=== PATIENT | male | born 1960 | race Caucasian/White ===

== ENCOUNTER 2016-09-12 22:35 | Inpatient (IN) | payer MEDICAID, OTHER ==
[~2016-09-12] VITALS: Ht 170.2 cm; Wt 69.8 kg
[~2016-09-12 22:35] MED LIST: ASPI-1093 PO; AUD NEB; BENZ2TAB10 PO; CARV6 PO; DSS100 PO; FLUP5 PO; FURO40 PO; IPRNEB NEB; LURA40 PO; NICO21T TD; PANT40TA25 PO; SLOWK8 PO; VALS40TA4 PO
[2016-09-13] MEDS ORDERED: LORazepam 2 MG/ML VIAL IM ONE ×2 (00:30)
[2016-09-13] MEDS ORDERED: HALOPERIDOL LACTATE 5 MG/ML VIAL IM ONE ×2 (00:30)
[2016-09-13] MEDS ORDERED: DiphenhydrAMINE HCL 50 MG/ML VIAL IM ONE ×2 (00:30)
[2016-09-13 00:34] LABS: EOSINOPHILS % (AUTO) 3.3 % (1.0-6.0); HEMATOCRIT 37.1 % (41-53); HEMOGLOBIN 12.6 g/dL (13.5-17.5); LYMPHOCYTES # (AUTO) 2.2 K/uL (1.0-4.8); LYMPHOCYTES % (AUTO) 25.8 % (22.0-44.0); MEAN CORPUSCULAR HEMOGLOBIN 30.9 pg (26.0-34.0); MEAN CORPUSCULAR HGB CONC 33.9 G/dL (31.0-37.0); MEAN CORPUSCULAR VOLUME 91 fL (80-100); MONOCYTES # (AUTO) 1.1 K/uL (0.1-1.0); MONOCYTES % (AUTO) 12.6 % (2.0-9.0); NEUTROPHILS # (AUTO) 4.9 K/uL (1.8-7.7); NEUTROPHILS % (AUTO) 57.3 % (40.0-70.0); PLATELET COUNT (AUTO) 400 K/uL (150-450); RED BLOOD CELL COUNT(AUTO) 4.07 MIL/uL (4.50-5.90); RED CELL DISTRIBUTION WIDTH 13.5 % (11.5-14.5); WHITE BLOOD COUNT (AUTO) 8.6 K/uL (4.5-11.0)
[2016-09-13 00:39] LABS: ANION GAP 3 mmol/L (8-16); CALCIUM, TOTAL 8.7 mg/dL (8.8-10.5); CARBON DIOXIDE 31 mmol/L (22-29); CHLORIDE 92 mmol/L (98-107); GLOMERULAR FILTR. RATE CALC > 60 mL/min (>60); POTASSIUM 4.8 mmol/L (3.5-5.1); SODIUM SERUM 126 mmol/L (136-145); UREA NITROGEN, BLOOD 14 mg/dL (7-18)
[2016-09-13 00:45] LABS: ALANINE AMINOTRANSFERASE 30 U/L (12-78); ALBUMIN 3.4 g/dL (3.4-5.0); ASPARTATE AMINOTRANSFERASE 29 U/L (15-37); BILIRUBIN,TOTAL 0.6 mg/dL (0.1-1.0); TOTAL PROTEIN, SERUM 7.7 g/dL (6.4-8.2)
[2016-09-13] MEDS ORDERED: ChlordiazePOXIDE HCL 25 MG CAPSULE PO ONE (02:30)
[2016-09-13 03:40] LABS: CHOL/HDL RATIO 2.5 (4.2-7.3)
[2016-09-13] MEDS ORDERED: SODIUM CHLORIDE 1 GM TABLET PO ONE (04:15)
[2016-09-13] MEDS: LORazepam 2 MG TABLET PO PRN (09:38)
[2016-09-13] MEDS: HALOPERIDOL 5 MG TABLET PO PRN (09:38)
[2016-09-13 10:16] VITALS: BP 179/116
[2016-09-13 15:50] VITALS: BP 148/88
[2016-09-13] MEDS: SODIUM CHLORIDE 1 GM TABLET PO SCH (20:54)
[2016-09-13] MEDS: RisperiDONE 2 MG TABLET PO SCH (20:54)
[2016-09-14 08:19] VITALS: BP 114/72
[2016-09-14] MEDS: SODIUM CHLORIDE 1 GM TABLET PO SCH ×2 (08:52→17:16)
[2016-09-14] MEDS: RisperiDONE 2 MG TABLET PO SCH ×2 (08:52→20:31)
[2016-09-14] MEDS ORDERED: CloNIDine HCL 0.1 MG TABLET PO PRN (09:45)
[2016-09-14] MEDS: LORazepam 2 MG TABLET PO PRN (11:15)
[2016-09-14] MEDS: HALOPERIDOL 5 MG TABLET PO PRN (11:15)
[2016-09-15] MEDS: ZOLPIDEM TARTRATE 10 MG TABLET PO PRN (00:53)
[2016-09-15] MEDS: HALOPERIDOL 5 MG TABLET PO PRN ×2 (00:54→16:40)
[2016-09-15] MEDS: ASPIRIN 81 MG CHEWABLE TABLET PO SCH (06:57)
[2016-09-15 08:04] VITALS: BP 155/99
[2016-09-15] MEDS: FUROSEMIDE 20 MG TABLET PO SCH (08:15)
[2016-09-15] MEDS: SODIUM CHLORIDE 1 GM TABLET PO SCH ×2 (08:15→16:41)
[2016-09-15] MEDS: RisperiDONE 2 MG TABLET PO SCH ×2 (08:15→20:18)
[2016-09-15] MEDS: AmLODIPine BESYLATE 10 MG TABLET PO SCH (09:20)
[2016-09-15 10:38] VITALS: BP_SYST 139; BP_SYST 150; BP_DIAS 101; BP_DIAS 104
[2016-09-15] MEDS: CARVEDILOL 3.125 MG TABLET PO SCH (16:40)
[2016-09-15] MEDS: LORazepam 2 MG TABLET PO PRN (16:40)
[2016-09-15 20:49] VITALS: BP 139/68
[2016-09-16] MEDS: ASPIRIN 81 MG CHEWABLE TABLET PO SCH (06:57)
[2016-09-16 07:28] LABS: ANION GAP 8 mmol/L (8-16); CALCIUM, TOTAL 8.5 mg/dL (8.8-10.5); CARBON DIOXIDE 27 mmol/L (22-29); CHLORIDE 99 mmol/L (98-107); CREATININE 0.73 mg/dL (0.60-1.30); GLOMERULAR FILTR. RATE CALC > 60 mL/min (>60); POTASSIUM 4.3 mmol/L (3.5-5.1); SODIUM SERUM 134 mmol/L (136-145); UREA NITROGEN, BLOOD 18 mg/dL (7-18)
[2016-09-16 08:30] VITALS: BP 152/80
[2016-09-16] MEDS: RisperiDONE 2 MG TABLET PO SCH ×2 (09:12→20:38)
[2016-09-16] MEDS: AmLODIPine BESYLATE 10 MG TABLET PO SCH (09:12)
[2016-09-16] MEDS: SODIUM CHLORIDE 1 GM TABLET PO SCH (09:13)
[2016-09-16] MEDS: CARVEDILOL 3.125 MG TABLET PO SCH (09:13)
[2016-09-16] MEDS: FUROSEMIDE 20 MG TABLET PO SCH (09:13)
[2016-09-16 16:30] VITALS: BP 148/78
[2016-09-16] MEDS: LORazepam 2 MG TABLET PO PRN (17:35)
[2016-09-16] MEDS: HALOPERIDOL 5 MG TABLET PO PRN (18:00)
[2016-09-17] MEDS: ASPIRIN 81 MG CHEWABLE TABLET PO SCH (07:02)
[2016-09-17 08:11] VITALS: BP 168/96
[2016-09-17] MEDS: CARVEDILOL 3.125 MG TABLET PO SCH (09:04)
[2016-09-17] MEDS: RisperiDONE 2 MG TABLET PO SCH (09:04)
[2016-09-17] MEDS: FUROSEMIDE 20 MG TABLET PO SCH (09:04)
[2016-09-17] MEDS: AmLODIPine BESYLATE 10 MG TABLET PO SCH (09:04)
[2016-09-17 19:08] VITALS: BP 129/70
[2016-09-17] MEDS: RisperiDONE 3 MG TABLET PO SCH (20:41)
[2016-09-18] MEDS: ASPIRIN 81 MG CHEWABLE TABLET PO SCH (07:01)
[2016-09-18 08:03] VITALS: BP 157/99
[2016-09-18] MEDS: CARVEDILOL 3.125 MG TABLET PO SCH (08:49)
[2016-09-18] MEDS: AmLODIPine BESYLATE 10 MG TABLET PO SCH (08:49)
[2016-09-18] MEDS: RisperiDONE 3 MG TABLET PO SCH ×2 (08:49→20:38)
[2016-09-18] MEDS: FUROSEMIDE 20 MG TABLET PO SCH (08:49)
[2016-09-18 16:28] VITALS: BP 124/82
[2016-09-18] MEDS: LORazepam 2 MG TABLET PO PRN (20:38)
[2016-09-18] MEDS: HALOPERIDOL 5 MG TABLET PO PRN (20:38)
[2016-09-19] MEDS: ASPIRIN 81 MG CHEWABLE TABLET PO SCH (06:46)
[2016-09-19 08:05] VITALS: BP 146/96
[2016-09-19] MEDS: AmLODIPine BESYLATE 10 MG TABLET PO SCH (08:35)
[2016-09-19] MEDS: CARVEDILOL 3.125 MG TABLET PO SCH (08:35)
[2016-09-19] MEDS: FUROSEMIDE 20 MG TABLET PO SCH (08:35)
[2016-09-19] MEDS: HALOPERIDOL 5 MG TABLET PO PRN (08:35)
[2016-09-19] MEDS: RisperiDONE 3 MG TABLET PO SCH ×2 (08:35→20:19)
[2016-09-19] MEDS: IBUPROFEN 400 MG TABLET PO PRN (11:10)
[2016-09-19 16:48] VITALS: BP 137/86
[2016-09-19] MEDS: ZOLPIDEM TARTRATE 10 MG TABLET PO PRN (23:44)
[2016-09-20 00:08] VITALS: BP 144/93
[2016-09-20] MEDS: IBUPROFEN 400 MG TABLET PO PRN ×2 (01:47→14:33)
[2016-09-20] MEDS: ASPIRIN 81 MG CHEWABLE TABLET PO SCH (06:43)
[2016-09-20 08:04] VITALS: BP 146/84
[2016-09-20] MEDS: AmLODIPine BESYLATE 10 MG TABLET PO SCH (08:44)
[2016-09-20] MEDS: CARVEDILOL 3.125 MG TABLET PO SCH (08:44)
[2016-09-20] MEDS: FUROSEMIDE 20 MG TABLET PO SCH (08:44)
[2016-09-20] MEDS: RisperiDONE 3 MG TABLET PO SCH ×2 (08:45→20:24)
[2016-09-20 16:07] VITALS: BP 101/64
[2016-09-20] MEDS: ZOLPIDEM TARTRATE 10 MG TABLET PO PRN (21:10)
[2016-09-20] MEDS: BACITRACIN 28.4 GM OINTMENT TP SCH (21:54)
[2016-09-20] MEDS: LORazepam 2 MG TABLET PO PRN (23:35)
[2016-09-21] MEDS: ASPIRIN 81 MG CHEWABLE TABLET PO SCH (07:05)
[2016-09-21 08:00] VITALS: BP 138/85
[2016-09-21 08:29] LABS: ANION GAP 7 mmol/L (8-16); CALCIUM, TOTAL 8.2 mg/dL (8.8-10.5); CARBON DIOXIDE 28 mmol/L (22-29); CHLORIDE 94 mmol/L (98-107); CREATININE 0.67 mg/dL (0.60-1.30); GLOMERULAR FILTR. RATE CALC > 60 mL/min (>60); POTASSIUM 3.8 mmol/L (3.5-5.1); SODIUM SERUM 129 mmol/L (136-145); UREA NITROGEN, BLOOD 17 mg/dL (7-18)
[2016-09-21] MEDS: BACITRACIN 28.4 GM OINTMENT TP SCH ×3 (09:00→16:47)
[2016-09-21] MEDS: HALOPERIDOL 5 MG TABLET PO PRN ×2 (10:04→17:01)
[2016-09-21] MEDS: RisperiDONE 3 MG TABLET PO SCH ×2 (10:04→20:11)
[2016-09-21] MEDS: CARVEDILOL 3.125 MG TABLET PO SCH (10:04)
[2016-09-21] MEDS: AmLODIPine BESYLATE 10 MG TABLET PO SCH (10:04)
[2016-09-21] MEDS: FUROSEMIDE 20 MG TABLET PO SCH (10:04)
[2016-09-21] MEDS ORDERED: RISP1 PO (14:36)
[2016-09-21 16:00] VITALS: BP 133/82
[2016-09-21] MEDS: LORazepam 2 MG TABLET PO PRN (17:01)
[2016-09-21] MEDS: ZOLPIDEM TARTRATE 10 MG TABLET PO PRN (20:12)
[2016-09-22] MEDS: ASPIRIN 81 MG CHEWABLE TABLET PO SCH (07:00)
[2016-09-22 07:42] LABS: ANION GAP 7 mmol/L (8-16); CALCIUM, TOTAL 8.2 mg/dL (8.8-10.5); CARBON DIOXIDE 29 mmol/L (22-29); CHLORIDE 99 mmol/L (98-107); CREATININE 0.69 mg/dL (0.60-1.30); GLOMERULAR FILTR. RATE CALC > 60 mL/min (>60); POTASSIUM 3.8 mmol/L (3.5-5.1); SODIUM SERUM 135 mmol/L (136-145); UREA NITROGEN, BLOOD 15 mg/dL (7-18)
[2016-09-22 08:18] VITALS: BP 142/84
[2016-09-22] MEDS: AmLODIPine BESYLATE 10 MG TABLET PO SCH (08:58)
[2016-09-22] MEDS: FUROSEMIDE 20 MG TABLET PO SCH (08:58)
[2016-09-22] MEDS: RisperiDONE 3 MG TABLET PO SCH ×2 (08:58→20:12)
[2016-09-22] MEDS: CARVEDILOL 3.125 MG TABLET PO SCH (08:58)
[2016-09-22] MEDS: BACITRACIN 28.4 GM OINTMENT TP SCH ×2 (09:00→16:02)
[2016-09-22] MEDS: IBUPROFEN 400 MG TABLET PO PRN (09:03)
[2016-09-22] MEDS: ACETAMINOPHEN 325 MG TABLET PO PRN (11:15)
[2016-09-22] MEDS: LORazepam 2 MG TABLET PO PRN (15:50)
[2016-09-22 18:59] VITALS: BP 123/72
[2016-09-23] MEDS: IBUPROFEN 400 MG TABLET PO PRN ×3 (01:30→16:28)
[2016-09-23] MEDS: ZOLPIDEM TARTRATE 10 MG TABLET PO PRN ×2 (01:30→22:00)
[2016-09-23 01:31] VITALS: BP 120/80
[2016-09-23] MEDS: ASPIRIN 81 MG CHEWABLE TABLET PO SCH (06:47)
[2016-09-23 08:11] VITALS: BP 144/76
[2016-09-23] MEDS: AmLODIPine BESYLATE 10 MG TABLET PO SCH (09:03)
[2016-09-23] MEDS: RisperiDONE 3 MG TABLET PO SCH ×2 (09:03→20:34)
[2016-09-23] MEDS: FUROSEMIDE 20 MG TABLET PO SCH (09:03)
[2016-09-23] MEDS: CARVEDILOL 3.125 MG TABLET PO SCH (09:03)
[2016-09-23] MEDS: LORazepam 2 MG TABLET PO PRN ×2 (09:04→13:31)
[2016-09-23] MEDS: BACITRACIN 28.4 GM OINTMENT TP SCH ×2 (09:05→16:27)
[2016-09-23 09:25] VITALS: BP 130/70
[2016-09-23] MEDS: HALOPERIDOL 5 MG TABLET PO PRN (13:31)
[2016-09-23] MEDS: ACETAMINOPHEN 325 MG TABLET PO PRN (13:31)
[2016-09-23 13:32] VITALS: BP 127/72
[2016-09-24] MEDS: ASPIRIN 81 MG CHEWABLE TABLET PO SCH (06:51)
[2016-09-24 08:00] VITALS: BP 133/77
[2016-09-24] MEDS: BACITRACIN 28.4 GM OINTMENT TP SCH ×2 (09:00→16:22)
[2016-09-24] MEDS: AmLODIPine BESYLATE 10 MG TABLET PO SCH (09:06)
[2016-09-24] MEDS: FUROSEMIDE 20 MG TABLET PO SCH (09:06)
[2016-09-24] MEDS: HALOPERIDOL 5 MG TABLET PO PRN (09:06)
[2016-09-24] MEDS: CARVEDILOL 3.125 MG TABLET PO SCH (09:06)
[2016-09-24] MEDS: RisperiDONE 3 MG TABLET PO SCH ×2 (09:06→20:18)
[2016-09-24 18:43] VITALS: BP 124/82
[2016-09-24] MEDS: IBUPROFEN 400 MG TABLET PO PRN (18:45)
[2016-09-24] MEDS: ZOLPIDEM TARTRATE 10 MG TABLET PO PRN (21:27)
[2016-09-24] MEDS: ACETAMINOPHEN 325 MG TABLET PO PRN (23:48)
[2016-09-24 23:49] VITALS: BP 122/75
[2016-09-25] MEDS: ASPIRIN 81 MG CHEWABLE TABLET PO SCH (06:41)
[2016-09-25] MEDS: AmLODIPine BESYLATE 10 MG TABLET PO SCH (07:52)
[2016-09-25] MEDS: FUROSEMIDE 20 MG TABLET PO SCH (07:52)
[2016-09-25] MEDS: RisperiDONE 3 MG TABLET PO SCH ×2 (07:52→20:16)
[2016-09-25] MEDS: CARVEDILOL 3.125 MG TABLET PO SCH (07:53)
[2016-09-25 08:43] VITALS: BP 135/78
[2016-09-25] MEDS: BACITRACIN 28.4 GM OINTMENT TP SCH ×2 (14:07→16:15)
[2016-09-25] MEDS: IBUPROFEN 400 MG TABLET PO PRN ×2 (14:49→23:58)
[2016-09-25 14:55] VITALS: BP 139/67
[2016-09-25 15:45] VITALS: BP 143/73
[2016-09-25 17:00] VITALS: BP 137/89
[2016-09-25] MEDS: ACETAMINOPHEN 325 MG TABLET PO PRN (20:16)
[2016-09-25 23:58] VITALS: BP 140/79
[2016-09-26] MEDS: HALOPERIDOL 5 MG TABLET PO PRN (00:04)
[2016-09-26] MEDS: ZOLPIDEM TARTRATE 10 MG TABLET PO PRN (00:04)
[2016-09-26] MEDS: LORazepam 2 MG TABLET PO PRN ×3 (01:58→20:18)
[2016-09-26] MEDS: ASPIRIN 81 MG CHEWABLE TABLET PO SCH (06:35)
[2016-09-26] MEDS: RisperiDONE 3 MG TABLET PO SCH ×2 (07:55→20:32)
[2016-09-26] MEDS: FUROSEMIDE 20 MG TABLET PO SCH (07:55)
[2016-09-26] MEDS: AmLODIPine BESYLATE 10 MG TABLET PO SCH (07:55)
[2016-09-26] MEDS: CARVEDILOL 3.125 MG TABLET PO SCH (07:56)
[2016-09-26] MEDS: BACITRACIN 28.4 GM OINTMENT TP SCH ×2 (07:56→16:19)
[2016-09-26 08:00] VITALS: BP 111/72
[2016-09-26] MEDS: IBUPROFEN 400 MG TABLET PO PRN (15:31)
[2016-09-26 16:31] VITALS: BP 127/68
[2016-09-27] MEDS: ASPIRIN 81 MG CHEWABLE TABLET PO SCH (07:00)
[2016-09-27] MEDS: AmLODIPine BESYLATE 10 MG TABLET PO SCH (08:01)
[2016-09-27] MEDS: FUROSEMIDE 20 MG TABLET PO SCH (08:01)
[2016-09-27] MEDS: CARVEDILOL 3.125 MG TABLET PO SCH (08:01)
[2016-09-27] MEDS: RisperiDONE 3 MG TABLET PO SCH (08:01)
[2016-09-27] MEDS: LORazepam 2 MG TABLET PO PRN ×2 (08:03→15:47)
[2016-09-27 08:06] VITALS: BP 135/86
[2016-09-27] MEDS: BACITRACIN 28.4 GM OINTMENT TP SCH ×2 (10:36→16:27)
[2016-09-27] MEDS ORDERED: RISP3 PO ×2 (14:01→15:54)
[2016-09-27] MEDS: IBUPROFEN 400 MG TABLET PO PRN (15:47)
[2016-09-27] MEDS ORDERED: AMLO-512 PO (15:51)
[2016-09-27] MEDS ORDERED: FURO20 PO (15:51)
[2016-09-27] MEDS ORDERED: ASPI81 PO (15:51)
[2016-09-27] MEDS ORDERED: CARV3 PO (15:51)
[2016-09-27 16:11] VITALS: BP 118/71
== END 2016-09-27 17:15 | disposition home or self-care (01) | DRG 750 ==
LOC: EMS 22:36 → AHU 09-13 09:01 → 3EC 09-13 18:04
DX: F20.0 Paranoid schizophrenia (principal); I11.0 Hypertensive heart disease with heart failure; I50.9 Heart failure, unspecified; I42.9 Cardiomyopathy, unspecified; F03.90 Unspecified dementia, unspecified severity, without behavioral disturbance, psychotic disturbance, mood disturbance, and anxiety; R45.851 Suicidal ideations; J44.9 Chronic obstructive pulmonary disease, unspecified; F17.210 Nicotine dependence, cigarettes, uncomplicated; F41.9 Anxiety disorder, unspecified; I25.2 Old myocardial infarction; I25.10 Atherosclerotic heart disease of native coronary artery without angina pectoris; E78.5 Hyperlipidemia, unspecified; E87.1 Hypo-osmolality and hyponatremia; D64.9 Anemia, unspecified; F10.10 Alcohol abuse, uncomplicated; F12.10 Cannabis abuse, uncomplicated; F15.10 Other stimulant abuse, uncomplicated; Z71.6 Tobacco abuse counseling; Z71.41 Alcohol abuse counseling and surveillance of alcoholic; Z71.51 Drug abuse counseling and surveillance of drug abuser; Z78.1 Physical restraint status; Z59.0 Homelessness; Z88.8 Allergy status to other drugs, medicaments and biological substances
CPT/HCPCS: 83036; 84443; 96372; 99285; G0480; J1200; J1630; J2060

== ENCOUNTER 2016-11-24 13:25 | Inpatient (IN) | payer MEDICAID, OTHER ==
[~2016-11-24] VITALS: Ht 175.3 cm; Wt 65.9 kg
[~2016-11-24 13:25] MED LIST changes: +AMLO-512 PO; -ASPI-1093 PO; +ASPI81 PO; -AUD NEB; -BENZ2TAB10 PO; +CARV3 PO; -CARV6 PO; -DSS100 PO; -FLUP5 PO; +FURO20 PO; -FURO40 PO; -IPRNEB NEB; -LURA40 PO; -NICO21T TD; -PANT40TA25 PO; +RISP3 PO; -SLOWK8 PO; -VALS40TA4 PO
[2016-11-24] MEDS ORDERED: TRIH2TAB3 PO (13:48)
[2016-11-24] MEDS ORDERED: VITAD1000 PO (13:48)
[2016-11-24] MEDS ORDERED: DSS100 PO (13:48)
[2016-11-24] MEDS ORDERED: PANT40TA25 PO (13:48)
[2016-11-24] MEDS ORDERED: HALO5 PO (13:48)
[2016-11-24] MEDS ORDERED: HEPA500017 SQ (13:48)
[2016-11-24 14:47] LABS: BASOPHILS % (AUTO) 0.6 % (0.0-2.0); EOSINOPHILS % (AUTO) 4.3 % (1.0-6.0); HEMATOCRIT 31.7 % (41-53); HEMOGLOBIN 10.9 g/dL (13.5-17.5); LYMPHOCYTES # (AUTO) 2.2 K/uL (1.0-4.8); LYMPHOCYTES % (AUTO) 30.2 % (22.0-44.0); MEAN CORPUSCULAR HEMOGLOBIN 30.8 pg (26.0-34.0); MEAN CORPUSCULAR HGB CONC 34.3 G/dL (31.0-37.0); MEAN CORPUSCULAR VOLUME 90 fL (80-100); MONOCYTES # (AUTO) 0.8 K/uL (0.1-1.0); MONOCYTES % (AUTO) 10.9 % (2.0-9.0); NEUTROPHILS # (AUTO) 3.9 K/uL (1.8-7.7); PLATELET COUNT (AUTO) 337 K/uL (150-450); RED BLOOD CELL COUNT(AUTO) 3.52 MIL/uL (4.50-5.90); RED CELL DISTRIBUTION WIDTH 15.2 % (11.5-14.5); WHITE BLOOD COUNT (AUTO) 7.2 K/uL (4.5-11.0)
[2016-11-24 14:51] LABS: ANION GAP 10 mmol/L (8-16); CALCIUM, TOTAL 8.8 mg/dL (8.8-10.5); CARBON DIOXIDE 27 mmol/L (22-29); CHLORIDE 98 mmol/L (98-107); CREATININE 0.71 mg/dL (0.60-1.30); GLOMERULAR FILTR. RATE CALC > 60 mL/min (>60); POTASSIUM 3.5 mmol/L (3.5-5.1); SODIUM SERUM 135 mmol/L (136-145); UREA NITROGEN, BLOOD 14 mg/dL (7-18)
[2016-11-24 14:57] LABS: ALANINE AMINOTRANSFERASE 40 U/L (12-78); ALBUMIN 3.3 g/dL (3.4-5.0); ASPARTATE AMINOTRANSFERASE 29 U/L (15-37); BILIRUBIN,TOTAL 0.5 mg/dL (0.1-1.0); TOTAL PROTEIN, SERUM 7.7 g/dL (6.4-8.2)
[2016-11-24] MEDS ORDERED: HALOPERIDOL LACTATE 5 MG/ML VIAL IM ONE (15:45)
[2016-11-24] MEDS ORDERED: DiphenhydrAMINE HCL 50 MG/ML VIAL IM ONE (15:45)
[2016-11-24] MEDS ORDERED: LORazepam 2 MG/ML VIAL IM ONE (15:45)
[2016-11-24] MEDS ORDERED: ZOLPIDEM TARTRATE 10 MG TABLET PO PRN (16:30)
[2016-11-24 22:50] VITALS: BP 139/84
[2016-11-25 06:44] LABS: CHOL/HDL RATIO 2.2 (4.2-7.3); THYROID STIMULATING HORMONE 1.5 uIU/mL (0.36-3.74)
[2016-11-25] MEDS ORDERED: PNEUMOCOCCAL VACCINE POLYVALENT 0.5 ML VIAL [PPSV23] IM ONE (07:15)
[2016-11-25 08:29] VITALS: BP 144/88
[2016-11-25] MEDS ORDERED: ONDANSETRON HCL 4 MG TABLET PO PRN (08:30)
[2016-11-25] MEDS ORDERED: MAGNESIUM HYDROXIDE SUSPENSION 30 ML UDCUP PO PRN (08:30)
[2016-11-25] MEDS ORDERED: ALBUTEROL SULFATE HFA 90 MCG/PUFF 8 GM INHALER IH PRN (08:30)
[2016-11-25] MEDS ORDERED: PETROLATUM,WHITE 71 GM JELLY TP PRN (08:30)
[2016-11-25] MEDS ORDERED: BACITRACIN 28.4 GM OINTMENT TP PRN (08:30)
[2016-11-25] MEDS ORDERED: LOPERAMIDE HCL 2 MG CAPSULE PO PRN (08:30)
[2016-11-25] MEDS ORDERED: CloNIDine HCL 0.1 MG TABLET PO PRN (08:30)
[2016-11-25] MEDS ORDERED: MAG HYDROX/AL HYDROX/SIMETH ES 30 ML SUSPENSION UDCUP PO PRN (08:30)
[2016-11-25] MEDS ORDERED: ACETAMINOPHEN 325 MG TABLET PO PRN (08:30)
[2016-11-25] MEDS: DOCUSATE SODIUM 100 MG CAPSULE PO SCH (08:42)
[2016-11-25] MEDS: OMEPRAZOLE 20 MG CAPSULE PO SCH (08:42)
[2016-11-25] MEDS: ASPIRIN 81 MG CHEWABLE TABLET PO SCH (08:42)
[2016-11-25] MEDS: CHOLECALCIFEROL (VIT D3) 1,000 UNITS TABLET PO SCH (08:42)
[2016-11-25] MEDS: AmLODIPine BESYLATE 10 MG TABLET PO SCH (08:42)
[2016-11-25] MEDS: FUROSEMIDE 20 MG TABLET PO SCH (08:42)
[2016-11-25] MEDS: CARVEDILOL 3.125 MG TABLET PO SCH (08:44)
[2016-11-25] MEDS ORDERED: BENZOCAINE/MENTHOL LOZENGE [8 LOZENGES/PACKET] MM PRN (08:45)
[2016-11-25] MEDS: LORazepam 2 MG TABLET PO PRN (10:32)
[2016-11-25] MEDS: HALOPERIDOL 5 MG TABLET PO PRN (10:33)
[2016-11-25] MEDS: DIVALPROEX SODIUM 500 MG DR TABLET PO SCH (16:45)
[2016-11-25] MEDS: RisperiDONE 4 MG TABLET PO SCH (16:45)
[2016-11-25] MEDS: IBUPROFEN 600 MG TABLET PO PRN (18:15)
[2016-11-26] MEDS: LORazepam 2 MG TABLET PO PRN ×3 (04:17→16:21)
[2016-11-26] MEDS: IBUPROFEN 600 MG TABLET PO PRN ×2 (04:18→13:25)
[2016-11-26] MEDS: DOCUSATE SODIUM 100 MG CAPSULE PO SCH (08:51)
[2016-11-26] MEDS: DIVALPROEX SODIUM 500 MG DR TABLET PO SCH ×2 (08:51→16:21)
[2016-11-26] MEDS: AmLODIPine BESYLATE 10 MG TABLET PO SCH (08:51)
[2016-11-26] MEDS: OMEPRAZOLE 20 MG CAPSULE PO SCH (08:51)
[2016-11-26] MEDS: CHOLECALCIFEROL (VIT D3) 1,000 UNITS TABLET PO SCH (08:51)
[2016-11-26] MEDS: RisperiDONE 4 MG TABLET PO SCH ×2 (08:52→16:21)
[2016-11-26] MEDS: CARVEDILOL 3.125 MG TABLET PO SCH (08:52)
[2016-11-26] MEDS: ASPIRIN 81 MG CHEWABLE TABLET PO SCH (08:52)
[2016-11-26] MEDS: FUROSEMIDE 20 MG TABLET PO SCH (08:52)
[2016-11-26 09:11] VITALS: BP 147/78
[2016-11-26 16:36] VITALS: BP 128/79
[2016-11-27] MEDS: CHOLECALCIFEROL (VIT D3) 1,000 UNITS TABLET PO SCH (08:26)
[2016-11-27] MEDS: DOCUSATE SODIUM 100 MG CAPSULE PO SCH (08:26)
[2016-11-27] MEDS: AmLODIPine BESYLATE 10 MG TABLET PO SCH (08:26)
[2016-11-27] MEDS: DIVALPROEX SODIUM 500 MG DR TABLET PO SCH ×2 (08:26→16:36)
[2016-11-27] MEDS: RisperiDONE 4 MG TABLET PO SCH ×2 (08:26→16:36)
[2016-11-27] MEDS: OMEPRAZOLE 20 MG CAPSULE PO SCH (08:26)
[2016-11-27] MEDS: FUROSEMIDE 20 MG TABLET PO SCH (08:26)
[2016-11-27] MEDS: ASPIRIN 81 MG CHEWABLE TABLET PO SCH (08:26)
[2016-11-27] MEDS: CARVEDILOL 3.125 MG TABLET PO SCH (08:27)
[2016-11-27] MEDS: IBUPROFEN 600 MG TABLET PO PRN (12:21)
[2016-11-27] MEDS: LORazepam 2 MG TABLET PO PRN (16:36)
[2016-11-27] MEDS: HALOPERIDOL 5 MG TABLET PO PRN (16:36)
[2016-11-27 17:26] VITALS: BP 130/79
[2016-11-28 08:00] VITALS: BP_SYST 149
[2016-11-28] MEDS: CARVEDILOL 3.125 MG TABLET PO SCH (09:21)
[2016-11-28] MEDS: ASPIRIN 81 MG CHEWABLE TABLET PO SCH (09:21)
[2016-11-28] MEDS: DIVALPROEX SODIUM 500 MG DR TABLET PO SCH ×2 (09:21→16:16)
[2016-11-28] MEDS: AmLODIPine BESYLATE 10 MG TABLET PO SCH (09:21)
[2016-11-28] MEDS: FUROSEMIDE 20 MG TABLET PO SCH (09:21)
[2016-11-28] MEDS: CHOLECALCIFEROL (VIT D3) 1,000 UNITS TABLET PO SCH (09:22)
[2016-11-28] MEDS: RisperiDONE 4 MG TABLET PO SCH ×2 (09:22→16:16)
[2016-11-28] MEDS: OMEPRAZOLE 20 MG CAPSULE PO SCH (09:22)
[2016-11-28] MEDS: DOCUSATE SODIUM 100 MG CAPSULE PO SCH (09:23)
[2016-11-28] MEDS: IBUPROFEN 600 MG TABLET PO PRN (13:14)
[2016-11-28 16:00] VITALS: BP 137/73
[2016-11-28] MEDS: HALOPERIDOL 5 MG TABLET PO PRN (16:15)
[2016-11-28] MEDS: LORazepam 2 MG TABLET PO PRN ×2 (16:16→21:27)
[2016-11-29 03:28] VITALS: BP 136/93
[2016-11-29 08:00] VITALS: BP 145/88
[2016-11-29] MEDS: AmLODIPine BESYLATE 10 MG TABLET PO SCH (08:48)
[2016-11-29] MEDS: DIVALPROEX SODIUM 500 MG DR TABLET PO SCH ×2 (08:48→16:13)
[2016-11-29] MEDS: CHOLECALCIFEROL (VIT D3) 1,000 UNITS TABLET PO SCH (08:48)
[2016-11-29] MEDS: OMEPRAZOLE 20 MG CAPSULE PO SCH (08:48)
[2016-11-29] MEDS: RisperiDONE 4 MG TABLET PO SCH ×2 (08:49→16:13)
[2016-11-29] MEDS: ASPIRIN 81 MG CHEWABLE TABLET PO SCH (08:49)
[2016-11-29] MEDS: FUROSEMIDE 20 MG TABLET PO SCH (08:49)
[2016-11-29] MEDS: CARVEDILOL 3.125 MG TABLET PO SCH (08:50)
[2016-11-29] MEDS: DOCUSATE SODIUM 100 MG CAPSULE PO SCH (09:00)
[2016-11-29 14:12] VITALS: BP 113/74
[2016-11-29] MEDS: LORazepam 2 MG TABLET PO PRN (14:12)
[2016-11-29] MEDS: IBUPROFEN 600 MG TABLET PO PRN (14:12)
[2016-11-29 15:18] VITALS: BP 129/78
[2016-11-29 16:30] VITALS: BP 118/64
[2016-11-30 08:39] VITALS: BP 151/92
[2016-11-30] MEDS: DOCUSATE SODIUM 100 MG CAPSULE PO SCH (08:41)
[2016-11-30] MEDS: ASPIRIN 81 MG CHEWABLE TABLET PO SCH (08:42)
[2016-11-30] MEDS: OMEPRAZOLE 20 MG CAPSULE PO SCH (08:42)
[2016-11-30] MEDS: CHOLECALCIFEROL (VIT D3) 1,000 UNITS TABLET PO SCH (08:42)
[2016-11-30] MEDS: DIVALPROEX SODIUM 500 MG DR TABLET PO SCH ×2 (08:42→16:35)
[2016-11-30] MEDS: AmLODIPine BESYLATE 10 MG TABLET PO SCH (08:43)
[2016-11-30] MEDS: FUROSEMIDE 20 MG TABLET PO SCH (08:43)
[2016-11-30] MEDS: RisperiDONE 4 MG TABLET PO SCH ×2 (08:43→16:35)
[2016-11-30] MEDS: CARVEDILOL 3.125 MG TABLET PO SCH (08:44)
[2016-11-30] MEDS: IBUPROFEN 600 MG TABLET PO PRN (10:46)
[2016-11-30 10:54] VITALS: BP 133/83
[2016-11-30] MEDS ORDERED: FluPHENAZine DECANOATE 25 MG/ML IM SCH (11:45)
[2016-11-30 11:46] VITALS: BP 128/88
[2016-11-30] MEDS ORDERED: DIVA500T35 PO (14:07)
[2016-11-30] MEDS ORDERED: RISP4 PO (14:28)
[2016-11-30] MEDS ORDERED: FLUD25I IM (14:29)
[2016-11-30] MEDS ORDERED: OMEP20 PO (15:39)
[2016-11-30 16:42] VITALS: BP 112/67
== END 2016-11-30 18:00 | DRG 750 ==
LOC: EMS 13:27 → AHU 18:19 → 3EC 19:18
PROVIDERS: ADMIT Psychiatry & Neurology Psychiatry; ATTEND Psychiatry & Neurology Psychiatry
DX: F20.0 Paranoid schizophrenia (principal); I11.0 Hypertensive heart disease with heart failure; I50.9 Heart failure, unspecified; E55.9 Vitamin D deficiency, unspecified; F10.10 Alcohol abuse, uncomplicated; F12.90 Cannabis use, unspecified, uncomplicated; F15.10 Other stimulant abuse, uncomplicated; I25.10 Atherosclerotic heart disease of native coronary artery without angina pectoris; J44.9 Chronic obstructive pulmonary disease, unspecified; K21.9 Gastro-esophageal reflux disease without esophagitis; K59.00 Constipation, unspecified; M19.90 Unspecified osteoarthritis, unspecified site; Z72.0 Tobacco use; Z71.51 Drug abuse counseling and surveillance of drug abuser; Z71.6 Tobacco abuse counseling; Z79.82 Long term (current) use of aspirin; Z28.21 Immunization not carried out because of patient refusal
CPT/HCPCS: 84436; 84439; 84443; 87081; 96372; 99285; G0480; J1200; J1630; J2060; J2680; J3535

== ENCOUNTER 2017-05-02 21:18 | Inpatient (IN) | payer MEDICAID, OTHER ==
[~2017-05-02] VITALS: Ht 175.3 cm; Wt 63.5 kg
[~2017-05-02 21:18] MED LIST changes: +DIVA500T35 PO; +DSS100 PO; +FLUD25I IM; +OMEP20 PO; -RISP3 PO; +RISP4 PO; +VITAD1000 PO
[2017-05-02 21:47] LABS: BASOPHILS % (AUTO) 0.4 % (0.0-2.0); EOSINOPHILS % (AUTO) 1.9 % (1.0-6.0); HEMATOCRIT 43.1 % (41-53); HEMOGLOBIN 14.7 g/dL (13.5-17.5); LYMPHOCYTES # (AUTO) 2.2 K/uL (1.0-4.8); LYMPHOCYTES % (AUTO) 18.8 % (22.0-44.0); MEAN CORPUSCULAR HEMOGLOBIN 30.2 pg (26.0-34.0); MEAN CORPUSCULAR VOLUME 89 fL (80-100); MONOCYTES # (AUTO) 1.1 K/uL (0.1-1.0); MONOCYTES % (AUTO) 9.9 % (2.0-9.0); PLATELET COUNT (AUTO) 444 K/uL (150-450); RED BLOOD CELL COUNT(AUTO) 4.85 MIL/uL (4.50-5.90); RED CELL DISTRIBUTION WIDTH 14.6 % (11.5-14.5)
[2017-05-02] MEDS ORDERED: DiphenhydrAMINE HCL 50 MG/ML VIAL IM ONE (22:00)
[2017-05-02] MEDS ORDERED: LORazepam 2 MG/ML VIAL IM ONE (22:00)
[2017-05-02] MEDS ORDERED: HALOPERIDOL LACTATE 5 MG/ML VIAL IM ONE (22:00)
[2017-05-02 22:04] LABS: ANION GAP 6 mmol/L (8-16); CALCIUM, TOTAL 9.1 mg/dL (8.8-10.5); CARBON DIOXIDE 29 mmol/L (22-29); CHLORIDE 92 mmol/L (98-107); CREATININE 0.76 mg/dL (0.60-1.30); GLOMERULAR FILTR. RATE CALC > 60 mL/min (>60); GLUCOSE,RANDOM 97 mg/dL (70-110); POTASSIUM 3.7 mmol/L (3.5-5.1); SODIUM SERUM 127 mmol/L (136-145); UREA NITROGEN, BLOOD 23 mg/dL (7-18)
[2017-05-02 22:09] LABS: ALANINE AMINOTRANSFERASE 33 U/L (12-78); ALBUMIN 3.6 g/dL (3.4-5.0); ALKALINE PHOSPHATASE 300 U/L (46-116); ASPARTATE AMINOTRANSFERASE 28 U/L (15-37); BILIRUBIN,TOTAL 0.9 mg/dL (0.1-1.0); TOTAL PROTEIN, SERUM 8.3 g/dL (6.4-8.2)
[2017-05-02 23:28] LABS: VALPROIC ACID < 3 mcg/mL (50-100)
[2017-05-03 02:12] LABS: CHOL/HDL RATIO 3.2 (4.2-7.3); CHOLESTEROL 161 mg/dL (131-200); HDL CHOLESTEROL 51 mg/dL (40-60); LDL CHOL (CALC.) 101 mg/dL (0-130); TRIGLYCERIDES 43 mg/dL (15-150)
[2017-05-03 03:45] LABS: AMPHET/METH SCREEN,URINE POSITIVE (NEGATIVE); BARBITURATE SCREEN, URINE NEGATIVE (NEGATIVE); BENZODIAZEPINES SCREEN,URINE NEGATIVE (NEGATIVE); CANNABINOID SCREEN,URINE POSITIVE (NEGATIVE); COCAINE SCREEN,URINE NEGATIVE (NEGATIVE); METHADONE SCREEN, URINE NEGATIVE (NEGATIVE); OPIATE SCREEN,URINE NEGATIVE (NEGATIVE)
[2017-05-03 03:46] LABS: PHENCYCLIDINE SCREEN,URINE NEGATIVE (NEGATIVE)
[2017-05-03] MEDS: LORazepam 2 MG TABLET PO PRN ×2 (10:41→19:14)
[2017-05-03] MEDS: OLANZapine 5 MG RAPDIS TABLET PO PRN ×2 (10:41→19:14)
[2017-05-03] MEDS ORDERED: INFLUENZA VIRUS VACCINE QVS 2017-18 (3YR+)/PF 60 MCG/0.5 ML SYRINGE IM ONE (19:30)
[2017-05-03] MEDS ORDERED: PNEUMOCOCCAL VACCINE POLYVALENT 0.5 ML VIAL [PPSV23] IM ONE (19:30)
[2017-05-03 19:48] VITALS: BP 145/81
[2017-05-04 06:02] VITALS: BP 138/74
[2017-05-04 08:10] VITALS: BP 132/76
[2017-05-04 08:46] LABS: BASOPHILS % (AUTO) 1.1 % (0.0-2.0); EOSINOPHILS % (AUTO) 2.1 % (1.0-6.0); HEMATOCRIT 40.4 % (41-53); HEMOGLOBIN 13.9 g/dL (13.5-17.5); LYMPHOCYTES # (AUTO) 1.7 K/uL (1.0-4.8); LYMPHOCYTES % (AUTO) 22.8 % (22.0-44.0); MEAN CORPUSCULAR HEMOGLOBIN 29.9 pg (26.0-34.0); MEAN CORPUSCULAR HGB CONC 34.3 G/dL (31.0-37.0); MEAN CORPUSCULAR VOLUME 87 fL (80-100); MONOCYTES # (AUTO) 0.7 K/uL (0.1-1.0); MONOCYTES % (AUTO) 9.5 % (2.0-9.0); NEUTROPHILS # (AUTO) 4.9 K/uL (1.8-7.7); NEUTROPHILS % (AUTO) 64.5 % (40.0-70.0); PLATELET COUNT (AUTO) 355 K/uL (150-450); RED BLOOD CELL COUNT(AUTO) 4.64 MIL/uL (4.50-5.90); RED CELL DISTRIBUTION WIDTH 14.8 % (11.5-14.5)
[2017-05-04 08:57] LABS: HEMOGLOBIN A1C 5.3 % (4.5-6.2)
[2017-05-04 09:15] LABS: ALANINE AMINOTRANSFERASE 33 U/L (12-78); ALBUMIN 3.2 g/dL (3.4-5.0); ALKALINE PHOSPHATASE 255 U/L (46-116); ANION GAP 4 mmol/L (8-16); ASPARTATE AMINOTRANSFERASE 37 U/L (15-37); BILIRUBIN,TOTAL 0.7 mg/dL (0.1-1.0); CALCIUM, TOTAL 8.7 mg/dL (8.8-10.5); CARBON DIOXIDE 29 mmol/L (22-29); CHLORIDE 98 mmol/L (98-107); CREATININE 0.86 mg/dL (0.60-1.30); FREE T4 (FREE THYROXINE) 1.23 ng/dL (0.76-1.46); GLOMERULAR FILTR. RATE CALC > 60 mL/min (>60); GLUCOSE,RANDOM 112 mg/dL (70-110); POTASSIUM 3.9 mmol/L (3.5-5.1); SODIUM SERUM 131 mmol/L (136-145); THYROID STIMULATING HORMONE 1.39 uIU/mL (0.36-3.74); TOTAL PROTEIN, SERUM 7.6 g/dL (6.4-8.2); UREA NITROGEN, BLOOD 17 mg/dL (7-18)
[2017-05-04] MEDS: LORazepam 2 MG TABLET PO PRN (09:41)
[2017-05-04] MEDS ORDERED: PROMETHAZINE HCL 25 MG TABLET PO PRN (12:00)
[2017-05-04] MEDS ORDERED: LOPERAMIDE HCL 2 MG CAPSULE PO PRN (12:00)
[2017-05-04] MEDS ORDERED: MAGNESIUM HYDROXIDE SUSPENSION 30 ML UDCUP PO PRN (12:00)
[2017-05-04] MEDS ORDERED: TUBERCULIN, PURIFIED PROTEIN DERIVATIVE 5 TU/0.1 ML SYG ID ONE (12:00)
[2017-05-04] MEDS ORDERED: MAG HYDROX/AL HYDROX/SIMETH ES 30 ML SUSPENSION UDCUP PO PRN (12:00)
[2017-05-04] MEDS ORDERED: ACETAMINOPHEN 325 MG TABLET PO PRN (12:00)
[2017-05-04] MEDS ORDERED: GuaiFENesin/D-METHORPHAN [SUGAR-FREE] 200-20MG/10 ML SYRUP UDCUP PO PRN (12:00)
[2017-05-04] MEDS: ASPIRIN 81 MG CHEWABLE TABLET PO SCH (12:58)
[2017-05-04] MEDS: SODIUM CHLORIDE 1 GM TABLET PO SCH ×2 (12:58→17:08)
[2017-05-04] MEDS: CHOLECALCIFEROL (VIT D3) 1,000 UNITS TABLET PO SCH (12:58)
[2017-05-04 16:00] VITALS: BP 118/67
[2017-05-04] MEDS: THIAMINE HCL 100 MG TABLET PO SCH (17:08)
[2017-05-04] MEDS: DIVALPROEX SODIUM 500 MG ER TABLET PO SCH (20:31)
[2017-05-04] MEDS ORDERED: FluPHENAZine HCL 10 MG TABLET PO SCH (21:00)
[2017-05-05 06:54] VITALS: BP 101/65
[2017-05-05] MEDS: CHOLECALCIFEROL (VIT D3) 1,000 UNITS TABLET PO SCH (08:53)
[2017-05-05] MEDS: SODIUM CHLORIDE 1 GM TABLET PO SCH ×2 (08:53→15:59)
[2017-05-05] MEDS: NALTREXONE HCL 50 MG TABLET PO SCH (08:53)
[2017-05-05] MEDS: THIAMINE HCL 100 MG TABLET PO SCH ×2 (08:53→15:59)
[2017-05-05] MEDS: FOLIC ACID 1 MG TABLET PO SCH (08:53)
[2017-05-05] MEDS: ASPIRIN 81 MG CHEWABLE TABLET PO SCH (08:53)
[2017-05-05] MEDS: MULTIVITAMINS WITH MINERALS, THERAPEUTIC TABLET PO SCH (08:54)
[2017-05-05] MEDS: FluPHENAZine HCL 5 MG TABLET PO PRN ×2 (08:54→15:59)
[2017-05-05] MEDS: LORazepam 2 MG TABLET PO PRN ×2 (08:54→15:59)
[2017-05-05] MEDS: HydrOXYzine PAMOATE 50 MG CAPSULE PO PRN (15:59)
[2017-05-05 16:00] VITALS: BP 116/68
[2017-05-05] MEDS: DIVALPROEX SODIUM 500 MG ER TABLET PO SCH (21:03)
[2017-05-05] MEDS: FluPHENAZine HCL 10 MG TABLET PO SCH (21:03)
[2017-05-05] MEDS: ZOLPIDEM TARTRATE 10 MG TABLET PO PRN (21:04)
[2017-05-06 06:29] VITALS: BP 144/90
[2017-05-06] MEDS: SODIUM CHLORIDE 1 GM TABLET PO SCH ×2 (09:15→16:29)
[2017-05-06] MEDS: CHOLECALCIFEROL (VIT D3) 1,000 UNITS TABLET PO SCH (09:15)
[2017-05-06] MEDS: NALTREXONE HCL 50 MG TABLET PO SCH (09:15)
[2017-05-06] MEDS: MULTIVITAMINS WITH MINERALS, THERAPEUTIC TABLET PO SCH (09:16)
[2017-05-06] MEDS: LORazepam 2 MG TABLET PO PRN (09:16)
[2017-05-06] MEDS: FOLIC ACID 1 MG TABLET PO SCH (09:16)
[2017-05-06] MEDS: THIAMINE HCL 100 MG TABLET PO SCH ×2 (09:16→16:29)
[2017-05-06] MEDS: ASPIRIN 81 MG CHEWABLE TABLET PO SCH (09:16)
[2017-05-06] MEDS: FluPHENAZine HCL 5 MG TABLET PO PRN (09:16)
[2017-05-06] MEDS ORDERED: FluPHENAZine DECANOATE 25 MG/ML IM ONE (14:00)
[2017-05-06 16:00] VITALS: BP 184/107
[2017-05-06 16:03] VITALS: BP 160/102
[2017-05-06] MEDS: AmLODIPine BESYLATE 10 MG TABLET PO SCH (16:29)
[2017-05-06] MEDS: CARVEDILOL 3.125 MG TABLET PO SCH (16:29)
[2017-05-06] MEDS: FUROSEMIDE 20 MG TABLET PO SCH (16:31)
[2017-05-06 17:30] VITALS: BP 150/90
[2017-05-06 18:00] VITALS: BP 153/83
[2017-05-06] MEDS: FluPHENAZine HCL 10 MG TABLET PO SCH (20:21)
[2017-05-06] MEDS: DIVALPROEX SODIUM 500 MG ER TABLET PO SCH (20:22)
[2017-05-07 06:35] VITALS: BP 156/98
[2017-05-07 08:00] VITALS: BP 146/91
[2017-05-07] MEDS: THIAMINE HCL 100 MG TABLET PO SCH ×2 (10:12→16:47)
[2017-05-07] MEDS: SODIUM CHLORIDE 1 GM TABLET PO SCH ×2 (10:12→16:47)
[2017-05-07] MEDS: AmLODIPine BESYLATE 10 MG TABLET PO SCH (10:12)
[2017-05-07] MEDS: ASPIRIN 81 MG CHEWABLE TABLET PO SCH (10:12)
[2017-05-07] MEDS: CARVEDILOL 3.125 MG TABLET PO SCH (10:12)
[2017-05-07] MEDS: MULTIVITAMINS WITH MINERALS, THERAPEUTIC TABLET PO SCH (10:13)
[2017-05-07] MEDS: CHOLECALCIFEROL (VIT D3) 1,000 UNITS TABLET PO SCH (10:13)
[2017-05-07] MEDS: FUROSEMIDE 20 MG TABLET PO SCH (10:14)
[2017-05-07] MEDS: FOLIC ACID 1 MG TABLET PO SCH (10:14)
[2017-05-07] MEDS: NALTREXONE HCL 50 MG TABLET PO SCH (10:14)
[2017-05-07] MEDS: NYSTATIN 15 GM POWDER BOTTLE TP SCH ×2 (10:35→16:47)
[2017-05-07 12:00] VITALS: BP 134/86
[2017-05-07 16:23] VITALS: BP 120/65
[2017-05-07] MEDS: HydrOXYzine PAMOATE 50 MG CAPSULE PO PRN (16:47)
[2017-05-07] MEDS: LORazepam 2 MG TABLET PO PRN (16:47)
[2017-05-07] MEDS: DIVALPROEX SODIUM 500 MG ER TABLET PO SCH (21:06)
[2017-05-07] MEDS: FluPHENAZine HCL 10 MG TABLET PO SCH (21:06)
[2017-05-07] MEDS: ZOLPIDEM TARTRATE 10 MG TABLET PO PRN (21:07)
[2017-05-08 06:51] VITALS: BP 152/98
[2017-05-08 08:30] VITALS: BP 147/110
[2017-05-08] MEDS: THIAMINE HCL 100 MG TABLET PO SCH ×2 (08:52→16:40)
[2017-05-08] MEDS: ASPIRIN 81 MG CHEWABLE TABLET PO SCH (08:52)
[2017-05-08] MEDS: FUROSEMIDE 20 MG TABLET PO SCH (08:52)
[2017-05-08] MEDS: AmLODIPine BESYLATE 10 MG TABLET PO SCH (08:52)
[2017-05-08] MEDS: NALTREXONE HCL 50 MG TABLET PO SCH (08:52)
[2017-05-08] MEDS: CARVEDILOL 3.125 MG TABLET PO SCH (08:52)
[2017-05-08] MEDS: MULTIVITAMINS WITH MINERALS, THERAPEUTIC TABLET PO SCH (08:52)
[2017-05-08] MEDS: FOLIC ACID 1 MG TABLET PO SCH (08:52)
[2017-05-08] MEDS: CHOLECALCIFEROL (VIT D3) 1,000 UNITS TABLET PO SCH (08:53)
[2017-05-08] MEDS: SODIUM CHLORIDE 1 GM TABLET PO SCH ×2 (08:53→16:40)
[2017-05-08] MEDS: NYSTATIN 15 GM POWDER BOTTLE TP SCH ×2 (09:00→16:40)
[2017-05-08 09:27] LABS: ALANINE AMINOTRANSFERASE 34 U/L (12-78); ALBUMIN 3.2 g/dL (3.4-5.0); ALKALINE PHOSPHATASE 248 U/L (46-116); ANION GAP 7 mmol/L (8-16); ASPARTATE AMINOTRANSFERASE 33 U/L (15-37); BILIRUBIN,TOTAL 0.9 mg/dL (0.1-1.0); CALCIUM, TOTAL 8.8 mg/dL (8.8-10.5); CARBON DIOXIDE 29 mmol/L (22-29); CHLORIDE 98 mmol/L (98-107); CREATININE 0.65 mg/dL (0.60-1.30); GLOMERULAR FILTR. RATE CALC > 60 mL/min (>60); GLUCOSE,RANDOM 122 mg/dL (70-110); SODIUM SERUM 134 mmol/L (136-145); TOTAL PROTEIN, SERUM 7.8 g/dL (6.4-8.2); UREA NITROGEN, BLOOD 16 mg/dL (7-18)
[2017-05-08 10:30] VITALS: BP 142/88
[2017-05-08] MEDS: FluPHENAZine HCL 10 MG TABLET PO SCH (20:18)
[2017-05-08] MEDS: DIVALPROEX SODIUM 500 MG ER TABLET PO SCH (20:18)
[2017-05-08] MEDS: ZOLPIDEM TARTRATE 10 MG TABLET PO PRN (20:18)
[2017-05-09 08:39] VITALS: BP 139/83
[2017-05-09] MEDS: CHOLECALCIFEROL (VIT D3) 1,000 UNITS TABLET PO SCH (09:07)
[2017-05-09] MEDS: CARVEDILOL 3.125 MG TABLET PO SCH (09:07)
[2017-05-09] MEDS: AmLODIPine BESYLATE 10 MG TABLET PO SCH (09:07)
[2017-05-09] MEDS: THIAMINE HCL 100 MG TABLET PO SCH ×2 (09:07→17:00)
[2017-05-09] MEDS: FOLIC ACID 1 MG TABLET PO SCH (09:08)
[2017-05-09] MEDS: MULTIVITAMINS WITH MINERALS, THERAPEUTIC TABLET PO SCH (09:08)
[2017-05-09] MEDS: NALTREXONE HCL 50 MG TABLET PO SCH (09:08)
[2017-05-09] MEDS: FUROSEMIDE 20 MG TABLET PO SCH (09:08)
[2017-05-09] MEDS: ASPIRIN 81 MG CHEWABLE TABLET PO SCH (09:08)
[2017-05-09] MEDS: NYSTATIN 15 GM POWDER BOTTLE TP SCH ×2 (09:10→17:00)
[2017-05-09] MEDS ORDERED: TRIHEXYPHENIDYL HCL 5 MG TABLET PO ONE (14:45)
[2017-05-09 16:06] VITALS: BP 131/87
[2017-05-09] MEDS: TRIHEXYPHENIDYL HCL 5 MG TABLET PO SCH (17:00)
[2017-05-09] MEDS: FluPHENAZine HCL 5 MG TABLET PO PRN (17:00)
[2017-05-09] MEDS: LORazepam 2 MG TABLET PO PRN (17:00)
[2017-05-09] MEDS: FluPHENAZine HCL 10 MG TABLET PO SCH (20:40)
[2017-05-09] MEDS: DIVALPROEX SODIUM 500 MG ER TABLET PO SCH (20:40)
[2017-05-09] MEDS: ZOLPIDEM TARTRATE 10 MG TABLET PO PRN (20:41)
[2017-05-10 00:19] VITALS: BP 146/96
[2017-05-10] MEDS: LORazepam 2 MG TABLET PO PRN ×3 (00:20→16:44)
[2017-05-10] MEDS: CHOLECALCIFEROL (VIT D3) 1,000 UNITS TABLET PO SCH (08:09)
[2017-05-10] MEDS: TRIHEXYPHENIDYL HCL 5 MG TABLET PO SCH ×3 (08:09→16:43)
[2017-05-10] MEDS: THIAMINE HCL 100 MG TABLET PO SCH ×2 (08:09→16:43)
[2017-05-10] MEDS: CARVEDILOL 3.125 MG TABLET PO SCH (08:09)
[2017-05-10] MEDS: ASPIRIN 81 MG CHEWABLE TABLET PO SCH (08:09)
[2017-05-10] MEDS: AmLODIPine BESYLATE 10 MG TABLET PO SCH (08:09)
[2017-05-10 08:13] VITALS: BP 139/88
[2017-05-10] MEDS: FOLIC ACID 1 MG TABLET PO SCH (08:13)
[2017-05-10] MEDS: NALTREXONE HCL 50 MG TABLET PO SCH (08:13)
[2017-05-10] MEDS: FUROSEMIDE 20 MG TABLET PO SCH (08:13)
[2017-05-10] MEDS: MULTIVITAMINS WITH MINERALS, THERAPEUTIC TABLET PO SCH (08:13)
[2017-05-10] MEDS: NYSTATIN 15 GM POWDER BOTTLE TP SCH ×2 (09:51→16:44)
[2017-05-10 16:00] VITALS: BP 136/89
[2017-05-10] MEDS: FluPHENAZine HCL 5 MG TABLET PO PRN (16:43)
[2017-05-10] MEDS: ZOLPIDEM TARTRATE 10 MG TABLET PO PRN (20:37)
[2017-05-10] MEDS: DIVALPROEX SODIUM 500 MG ER TABLET PO SCH (20:37)
[2017-05-10] MEDS: FluPHENAZine HCL 10 MG TABLET PO SCH (20:37)
[2017-05-11 06:05] VITALS: BP 127/89
[2017-05-11 08:36] VITALS: BP 149/89
[2017-05-11] MEDS: AmLODIPine BESYLATE 10 MG TABLET PO SCH (09:02)
[2017-05-11] MEDS: LORazepam 2 MG TABLET PO PRN ×3 (09:02→21:49)
[2017-05-11] MEDS: MULTIVITAMINS WITH MINERALS, THERAPEUTIC TABLET PO SCH (09:02)
[2017-05-11] MEDS: CHOLECALCIFEROL (VIT D3) 1,000 UNITS TABLET PO SCH (09:02)
[2017-05-11] MEDS: FOLIC ACID 1 MG TABLET PO SCH (09:02)
[2017-05-11] MEDS: THIAMINE HCL 100 MG TABLET PO SCH ×2 (09:02→16:26)
[2017-05-11] MEDS: CARVEDILOL 3.125 MG TABLET PO SCH (09:02)
[2017-05-11] MEDS: ASPIRIN 81 MG CHEWABLE TABLET PO SCH (09:02)
[2017-05-11] MEDS: NALTREXONE HCL 50 MG TABLET PO SCH (09:02)
[2017-05-11] MEDS: TRIHEXYPHENIDYL HCL 5 MG TABLET PO SCH ×3 (09:02→16:26)
[2017-05-11] MEDS: FUROSEMIDE 20 MG TABLET PO SCH (09:02)
[2017-05-11] MEDS: NYSTATIN 15 GM POWDER BOTTLE TP SCH ×2 (09:03→16:39)
[2017-05-11 16:00] VITALS: BP 140/87
[2017-05-11] MEDS: FluPHENAZine HCL 5 MG TABLET PO PRN (16:26)
[2017-05-11] MEDS ORDERED: NALT50TA PO (16:27)
[2017-05-11] MEDS ORDERED: TRIH5TAB2 PO (16:27)
[2017-05-11] MEDS ORDERED: FLUD25I IM (16:27)
[2017-05-11] MEDS ORDERED: DIVA500T52 PO (16:27)
[2017-05-11] MEDS ORDERED: FLUP10 PO (16:27)
[2017-05-11] MEDS: ZOLPIDEM TARTRATE 10 MG TABLET PO PRN (20:53)
[2017-05-11] MEDS: FluPHENAZine HCL 10 MG TABLET PO SCH (20:53)
[2017-05-11] MEDS: DIVALPROEX SODIUM 500 MG ER TABLET PO SCH (20:53)
[2017-05-12 05:51] VITALS: BP 132/83
[2017-05-12 08:30] VITALS: BP 134/91
[2017-05-12] MEDS: MULTIVITAMINS WITH MINERALS, THERAPEUTIC TABLET PO SCH (08:51)
[2017-05-12] MEDS: CARVEDILOL 3.125 MG TABLET PO SCH (08:51)
[2017-05-12] MEDS: FOLIC ACID 1 MG TABLET PO SCH (08:52)
[2017-05-12] MEDS: TRIHEXYPHENIDYL HCL 5 MG TABLET PO SCH ×2 (08:52→12:50)
[2017-05-12] MEDS: FUROSEMIDE 20 MG TABLET PO SCH (08:52)
[2017-05-12] MEDS: ASPIRIN 81 MG CHEWABLE TABLET PO SCH (08:52)
[2017-05-12] MEDS: AmLODIPine BESYLATE 10 MG TABLET PO SCH (08:52)
[2017-05-12] MEDS: NALTREXONE HCL 50 MG TABLET PO SCH (08:56)
[2017-05-12] MEDS: NYSTATIN 15 GM POWDER BOTTLE TP SCH (08:57)
[2017-05-12] MEDS: THIAMINE HCL 100 MG TABLET PO SCH (08:57)
[2017-05-12] MEDS: CHOLECALCIFEROL (VIT D3) 1,000 UNITS TABLET PO SCH (08:57)
[2017-05-12] MEDS ORDERED: FLUP10 PO (09:14)
[2017-05-12] MEDS ORDERED: TRIH5TAB2 PO (09:16)
[2017-05-12] MEDS ORDERED: NALT50TA6 PO (09:17)
[2017-05-20] MEDS ORDERED: FluPHENAZine DECANOATE 25 MG/ML IM SCH (09:00)
== END 2017-05-12 16:00 | disposition home or self-care (01) | DRG 750 ==
LOC: EMS 23:03 → B3A 05-03 15:36
PROVIDERS: ADMIT Psychiatry & Neurology Psychiatry; ATTEND Psychiatry & Neurology Psychiatry
DX: F20.0 Paranoid schizophrenia (principal); I11.0 Hypertensive heart disease with heart failure; I50.9 Heart failure, unspecified; E87.1 Hypo-osmolality and hyponatremia; I25.10 Atherosclerotic heart disease of native coronary artery without angina pectoris; J44.9 Chronic obstructive pulmonary disease, unspecified; M19.90 Unspecified osteoarthritis, unspecified site; F10.20 Alcohol dependence, uncomplicated; R32 Unspecified urinary incontinence; Z59.0 Homelessness; Z79.899 Other long term (current) drug therapy; Z87.891 Personal history of nicotine dependence; Z91.19 Patient's noncompliance with other medical treatment and regimen; Z82.49 Family history of ischemic heart disease and other diseases of the circulatory system; Z81.8 Family history of other mental and behavioral disorders; Z88.8 Allergy status to other drugs, medicaments and biological substances
CPT/HCPCS: 80074; 83036; 84439; 84443; 96372; 99285; G0480; G0481; J1200; J1630; J2060; J2680